=== PATIENT | female | born 1995 | race African-American/Black ===

== ENCOUNTER 2020-08-26 17:00 | Emergency (ER) | payer MEDICAID ==
[~2020-08-26] VITALS: Ht 162.6 cm; Wt 55.0 kg
[2020-08-26 18:48] LABS: BASOPHILS % 0.5 % (0.0-2.0); EOSINOPHILS % 0.1 % (0.0-5.0); HEMATOCRIT. 38.3 % (36.0-48.0); HEMOGLOBIN. 12.7 g/dL (12.0-16.0); MEAN CORPUSCULAR HEMOGLOBIN 30.3 pg (28.0-32.0); MEAN CORPUSCULAR VOLUME 91.3 fL (81.0-99.0); MEAN PLATELET VOLUME 8.7 fl (7.4-10.4); MONOCYTES % 5.1 % (2.0-8.0); NEUTROPHILS % 80.3 % (40.0-76.0); PLATELET 241 x1000/uL (130-400); RED CELL DISTRIBUTION WIDTH 14.3 % (11.6-14.6)
[2020-08-26 18:55] LABS: CHLORIDE 104 mEq/L (98-107)
[2020-08-26 19:00] LABS: ETHANOL BLOOD < 10 mg/dL
[2020-08-26 19:01] LABS: CLARITY URINE CLOUDY (CLEAR); COLOR URINE YELLOW (YELLOW); KETONES URINE 1+ (NEGATIVE); LEUKOCYTE ESTERASE URINE TRACE (NEGATIVE); NITRITE URINE NEGATIVE (NEGATIVE); OCCULT BLOOD URINE TRACE (NEGATIVE); PROTEIN URINE 1+ (NEGATIVE); SPECIFIC GRAVITY URINE 1.028 (1.005-1.030)
[2020-08-26 19:37] LABS: *BARBITURATES SCREEN URINE NEGATIVE (NEGATIVE); *BENZODIAZEPINES SCREEN URINE NEGATIVE (NEGATIVE); *COCAINE SCREEN URINE NEGATIVE (NEGATIVE); METHADONE URINE SCREEN NEGATIVE (NEGATIVE); OPIATES URINE SCREEN NEGATIVE (NEGATIVE)
[2020-08-26 19:38] LABS: CANNABINOID URINE SCREEN NEGATIVE (NEGATIVE); PHENCYCLIDINE URINE SCREEN NEGATIVE (NEGATIVE)
[2020-08-26 19:54] LABS: *AMPHETAMINES SCREEN URINE PRESUMTIVE POSITIVE (NEGATIVE)
[2020-08-27 11:20] VITALS: BP 111/63
== END 2020-08-27 11:55 | disposition home or self-care (01) ==
LOC: EDBD 17:00 → ER 17:00
DX: F15.188 Other stimulant abuse with other stimulant-induced disorder (principal); F16.188 Hallucinogen abuse with other hallucinogen-induced disorder; R46.2 Strange and inexplicable behavior; N39.0 Urinary tract infection, site not specified; R03.0 Elevated blood-pressure reading, without diagnosis of hypertension
CPT/HCPCS: 36415; 80053; 80305; 80307; 80320; 80329; 81003; 85025; 93005; 99285; G0480

== ENCOUNTER 2025-11-03 01:16 | Emergency (ER) | payer MEDICAID ==
[~2025-11-03] VITALS: Ht 172.7 cm; Wt 81.0 kg
[2025-11-03 01:24] VITALS: BP 126/78; PULSE 100; RESP 18; TEMP 98.2; O2SAT 98
[2025-11-03] MEDS: IBUPROFEN 800MG TABLET PO ONE (01:56)
[2025-11-03] MEDS: IBUPROFEN 800MG TABLET PO NR (01:56)
[2025-11-03] MEDS ORDERED: IBUP-2030 MT (02:48)
== END 2025-11-03 03:30 | disposition home or self-care (01) ==
LOC: ER 01:16
DX: M25.571 Pain in right ankle and joints of right foot (principal); F20.9 Schizophrenia, unspecified; F31.9 Bipolar disorder, unspecified; I10 Essential (primary) hypertension
CPT/HCPCS: 73610; 99283

== ENCOUNTER 2025-11-20 21:45 | Emergency (ER) | payer MEDICAID ==
[~2025-11-20] VITALS: Ht 167.6 cm; Wt 91.0 kg
[~2025-11-20 21:45] MED LIST: IBUP-2030 MT
[2025-11-20 21:53] VITALS: BP 134/92; PULSE 121; RESP 18; TEMP 98.7; O2SAT 98
[2025-11-20] MEDS ORDERED: FAMOTIDINE 20MG/2ML VIAL IV ONE (22:00)
[2025-11-21 00:11] LABS: BASOPHILS % 0.6 % (0.0-2.0); EOSINOPHILS % 0.7 % (0.0-5.0); HEMATOCRIT. 38.2 % (36.0-48.0); HEMOGLOBIN. 12.4 g/dL (12.0-16.0); LYMPHOCYTES % 35.8 % (20.0-50.0); MEAN PLATELET VOLUME 9.2 fl (7.4-10.4); MONOCYTES % 5.0 % (2.0-8.0); NEUTROPHILS % 57.9 % (40.0-76.0); PLATELET 278 x1000/uL (130-400); RED BLOOD CELL COUNT 4.35 mill/uL (4.2-5.4); RED CELL DISTRIBUTION WIDTH 15.0 % (11.6-14.6)
[2025-11-21] MEDS: FAMOTIDINE 20MG/2ML VIAL IV NR (00:18)
[2025-11-21] MEDS: SODIUM CHLORIDE 0.9% 1,000 ML IV ONE (00:19)
[2025-11-21 00:28] LABS: CREATININE 0.8 mg/dL (0.6-1.0); UREA NITROGEN BLOOD 12 mg/dL (9-23)
[2025-11-21 00:29] LABS: PROTEIN TOTAL 6.6 g/dL (6.0-8.3)
[2025-11-21 00:30] LABS: ASPARTATE AMINOTRANSFERASE 12 IU/L (<34); BILIRUBIN DIRECT < 0.1 mg/dL (<=3.0); BILIRUBIN TOTAL 0.2 mg/dL (0.1-1.0)
[2025-11-21 00:38] LABS: HCG SCREEN NEGATIVE
[2025-11-21 00:39] LABS: CLARITY URINE CLEAR (CLEAR); COLOR URINE YELLOW (YELLOW); GLUCOSE URINE NEGATIVE (NEGATIVE); KETONES URINE NEGATIVE (NEGATIVE); LEUKOCYTE ESTERASE URINE NEGATIVE (NEGATIVE); NITRITE URINE NEGATIVE (NEGATIVE); OCCULT BLOOD URINE NEGATIVE (NEGATIVE); PH URINE 6.0 (4.5-8.0); PROTEIN URINE NEGATIVE (NEGATIVE); SPECIFIC GRAVITY URINE 1.015 (1.005-1.030); UROBILINOGEN URINE 0.2 E.U./dL (0.2-1.0)
[2025-11-21] MEDS ORDERED: METR-167 MT (01:46)
[2025-11-21] MEDS ORDERED: DOXY100T2 MT (01:46)
[2025-11-21] MEDS: CEFTRIAXONE SODIUM 500MG VIAL IM ONE (02:07)
== END 2025-11-21 02:08 | disposition home or self-care (01) ==
LOC: ER 21:45
DX: N73.9 Female pelvic inflammatory disease, unspecified (principal); I10 Essential (primary) hypertension; F20.9 Schizophrenia, unspecified; F15.90 Other stimulant use, unspecified, uncomplicated; F31.9 Bipolar disorder, unspecified
CPT/HCPCS: 80076; 80048; 84703; 83690; 83735; 85025; 36415; 99285; 81003; 74176; 96361; 96372; 96374; J7030; J0696; J1308; Z7610 ×2